=== PATIENT | male | born 1960 | race Caucasian/White ===

== ENCOUNTER 2024-03-31 11:51 | Emergency (ER) | payer MEDICARE, SELFPAY ==
[2024-03-31 12:14] VITALS: BP 127/61; PULSE 79; RESP 16; TEMP 36.7; O2SAT 99
--- NOTE | 2024-03-31 12:18 | ED.URI ---
HPI - URI/Sore Throat General Chief Complaint: Upper Respiratory Infection Stated Complaint: throat burning, no energy Time Seen by Provider: 03/31/24 12:28 Source: patient and RN notes reviewed Mode of arrival: ambulatory Limitations: no limitations History of Present Illness HPI Narrative: 64 year old male presents with concern for 3-4 day history of his throat burning, fatigue, body aches, sweats. He denies nasal congestion, rhinorrhea, cough, nausea, vomiting, diarrhea. He reports cloudy urine but denies any other urine symptoms. He did not take his tamsulosin for a week. He has not taken anything [id number] for his symptoms. MD elicited complaint: sore throat Related Data Home Medications Medication Instructions Recorded Confirmed aspirin 81 mg tablet 81 mg PO DAILY 03/31/24 03/31/24 tamsulosin 0.4 mg capsule 0.4 mg PO DAILY 03/31/24 03/31/24 Allergies Allergy/AdvReac Type Severity Reaction Status Date / Time diphenhydramine AdvReac Intermediate Itching Verified 03/31/24 12:31 [From Marta] Review of Systems Review of Systems: CONSTITUTIONAL: Reports malaise, fatigue chills, sweats. Denies fever. EYES: Denies visual changes, redness, or discharge. ENT: Denies rhinorrhea, congestion, sinus pain, otalgia. Reports sore throat. CARDIOVASCULAR: Denies chest pain, palpitations, or edema. RESPIRATORY: Denies cough. Denies dyspnea. GASTROINTESTINAL: Denies abdominal pain, nausea, vomiting, diarrhea : Denies dysuria, frequency, urgency SKIN: Denies rash or itching. MUSCULOSKELETAL: Reports myalgia. NEUROLOGIC: Denies headache. All systems reviewed & are unremarkable except as noted in HPI and below PMFSH Comments At time of signature, agree with nursing past medical, surgical, social and family history. There is no relevant family history pertinent to the presenting complaint Exam Narrative: GENERAL: Well-appearing, well-nourished, and in no acute distress. HEAD: Normocephalic EYES: PERRLA, conjunctivae clear ENT: Nares clear, turbinates edematous and erythematous, clear discharge. Mucous membranes moist. TM pearly saeed with dull light reflex bilaterally; no tragal tenderness. Oropharynx not erythematous without lesions. Tonsils not enlarged and without exudate, no drooling, no hoarseness, no trismus, uvula midline. NECK: Supple. No lymphadenopathy CHEST: Clear to auscultation, breath sounds equal. No wheezing, rhonchi, rales, or stridor. No respiratory distress, speaks in full sentences. HEART: Regular rate and rhythm. No murmur heard. SKIN: Warm, dry, no rash. NEURO: Alert and oriented x3. PSYCH: Normal mood and affect Course Course Emergency Course: Patient is aware of diagnosis, understands and agrees to treatment plan. Anticipatory guidance given. Patient agrees to follow-up as directed and is aware of reasons to seek care at the emergency department. Portions of this record may have been created with voice recognition software Level of Care: Express Care Visit Vital Signs Vital signs: Vital Signs Temperature 98.1 F 03/31/24 12:14 Pulse Rate 79 03/31/24 12:14 Respiratory Rate 16 03/31/24 12:14 Blood Pressure 127/61 03/31/24 12:14 Pulse Oximetry 99 03/31/24 12:14 Oxygen Delivery Room Air 03/31/24 12:14 Temperature 98.1 F 03/31/24 12:14 Pulse Rate 79 03/31/24 12:14 Respiratory Rate 16 03/31/24 12:14 Blood Pressure 127/61 03/31/24 12:14 Pulse Oximetry 99 03/31/24 12:14 Oxygen Delivery Room Air 03/31/24 12:14 Reviewed. MDM - URI/Sore Throat MDM Narrative Medical decision making narrative: Differential diagnosis considered: Desai virus, strep pharyngitis, allergic rhinitis, upper respiratory tract infection, sinusitis, rhinosinusitis, nasopharyngitis. viral pharyngitis, otitis media, otitis externa, pneumonia, bronchitis, viral cough syndrome, viral syndrome, and influenza. Exam findings show no acute concerns or changes; p
== END 2024-03-31 12:45 | disposition home or self-care (01) ==
PROVIDERS: Emergency Provider Nurse Practitioner
DX: B34.9 Viral infection, unspecified (principal); Z20.822 Contact with and (suspected) exposure to COVID-19; K21.9 Gastro-esophageal reflux disease without esophagitis; N40.0 Benign prostatic hyperplasia without lower urinary tract symptoms; Z86.73 Personal history of transient ischemic attack (TIA), and cerebral infarction without residual deficits; Z85.72 Personal history of non-Hodgkin lymphomas
CPT/HCPCS: 81003; 87081; 87426; 87880; 99203; G0463

== ENCOUNTER 2024-04-08 12:25 | Emergency (ER) | payer MEDICARE, SELFPAY ==
--- NOTE | 2024-04-08 13:14 | ED.URI ---
HPI - URI/Sore Throat General Chief Complaint: Upper Respiratory Infection Stated Complaint: Sore Throat Time Seen by Provider: 04/08/24 13:00 Source: patient and RN notes reviewed Mode of arrival: ambulatory Limitations: no limitations History of Present Illness HPI Narrative: Patient presents today with a 2 week history of sore throat, cough that is worse at night, postnasal drainage. Denies shortness of breath or fever. He has tried Tylenol and Mucinex without much relief. Sore throat increases with swallowing. Related Data Home Medications Medication Instructions Recorded Confirmed aspirin 81 mg tablet 81 mg PO DAILY 03/31/24 03/31/24 tamsulosin 0.4 mg capsule 0.4 mg PO DAILY 03/31/24 03/31/24 omeprazole 20 mg capsule,delayed mg 04/08/24 release tadalafil 5 mg tablet mg 04/08/24 Allergies Allergy/AdvReac Type Severity Reaction Status Date / Time diphenhydramine AdvReac Intermediate Itching Verified 04/08/24 12:47 [From Marta] Review of Systems Review of Systems: CONSTITUTIONAL: Denies body aches, fever, chills, or sweats. EYES: Denies visual changes, redness, or discharge. ENT: Denies rhinorrhea, congestion, or otalgia.+ sore throat, postnasal drip CARDIOVASCULAR: Denies chest pain, palpitations, or edema. RESPIRATORY: Denies dyspnea.+ cough GASTROINTESTINAL: Denies abdominal pain, nausea, vomiting, or diarrhea. GENITOURINARY: Denies dysuria or hematuria. SKIN: Denies rash, itching, or wounds. MUSCULOSKELETAL: Denies back pain, joint pain, or myalgia. NEUROLOGIC: Denies headache, numbness, tingling, or weakness. PSYCH: Denies depression or anxiety. PMFSH Comments At time of signature, I have reviewed and agree with nursing past medical, surgical, social and family history unless otherwise noted. Please see nursing chart for further information. There is no relevant family history pertinent to the presenting complaint Exam Narrative: GENERAL: Well-appearing, well-nourished, and in no acute distress. HEAD: Normocephalic, atraumatic. EYES: EOMI. No redness or drainage. Conjunctivae normal. ENT: Mucous membranes pink and moist. Nares clear. No rhinorrhea. TMs normal bilaterally. Throat mildly erythematous without edema or exudate. Uvula midline. NECK: Normal AROM. Supple. No lymphadenopathy. CHEST: No respiratory distress. Clear to auscultation. Harsh cough noted. HEART: Regular rate and rhythm. No murmur appreciated. EXTREMITIES: Normal range of motion. No edema. SKIN: Warm, dry, no rash. Capillary refill normal. Normal skin turgor. NEURO: No focal deficits. Alert and oriented x3. Gait steady. PSYCH: Normal affect. No signs of depression or anxiety. Course Course Level of Care: Express Care Visit Vital Signs Vital signs: Vital Signs Temperature 99.0 F 04/08/24 13:18 Pulse Rate 75 04/08/24 13:18 Respiratory Rate 16 04/08/24 13:18 Blood Pressure 130/84 04/08/24 13:18 Pulse Oximetry 97 04/08/24 13:18 Oxygen Delivery Room Air 04/08/24 13:18 Temperature 99.0 F 04/08/24 13:18 Pulse Rate 75 04/08/24 13:18 Respiratory Rate 16 04/08/24 13:18 Blood Pressure 130/84 04/08/24 13:18 Pulse Oximetry 97 04/08/24 13:18 Oxygen Delivery Room Air 04/08/24 13:18 Reviewed MDM - URI/Sore Throat MDM Narrative Medical decision making narrative: Patient will be treated with doxycycline, prednisone, and benzonatate for sinusitis and bronchitis. Anticipatory guidance given. Differential Diagnosis Differential diagnosis: Likely upper respiratory infection, sinusitis, viral infection, bronchitis and other (Pneumonia) Critical Care Time Critical Care Time Critical Care Time: No Discharge Plan Discharge Clinical Impression: Bronchitis Sinusitis Qualifiers: Sinusitis location: unspecified location Chronicity: acute Recurrence: non-recurrent Qualified Code(s): J01.90 - Acute sinusitis, unspecified Patient Disposition: Home, Self-C
[2024-04-08 13:18] VITALS: BP 130/84; PULSE 75; RESP 16; TEMP 37.2; O2SAT 97
== END 2024-04-08 13:23 | disposition home or self-care (01) ==
PROVIDERS: Emergency Provider Nurse Practitioner
DX: J40 Bronchitis, not specified as acute or chronic (principal); J01.90 Acute sinusitis, unspecified
CPT/HCPCS: 99213; G0463

== ENCOUNTER 2024-07-31 09:46 | Emergency (ER) | payer MEDICARE, SELFPAY ==
--- NOTE | ~2024-07-31 | XR_ITS ---
EXAMINATION: XR chest 2V DATE: 07/31/2024 10:41 INDICATION: Cough and congestion TECHNIQUE: frontal and lateral views of the chest were obtained. COMPARISON: None FINDINGS: There are few small scattered calcified pulmonary nodules consistent with old granulomatous disease. No pneumonia, pulmonary edema, pleural effusion or pneumothorax. The cardiomediastinal silhouette is normal. Mild thoracic spondylosis. IMPRESSION: 1. No acute cardiopulmonary disease. Reviewed, dictated and finalized at location A.
[2024-07-31 09:56] VITALS: BP 129/72; PULSE 69; RESP 18; TEMP 36.8; O2SAT 98
[2024-07-31 09:57] VITALS: BP 129/72; PULSE 69; RESP 18; TEMP 36.8; O2SAT 98
--- NOTE | 2024-07-31 10:13 | ED.URI ---
HPI - URI/Sore Throat General Chief Complaint: Upper Respiratory Infection Stated Complaint: Sinus Time Seen by Provider: 07/31/24 10:15 Source: patient, RN notes reviewed and old records reviewed Mode of arrival: ambulatory Limitations: no limitations History of Present Illness HPI Narrative: Patient presents with complaints of nasal congestion, postnasal drip, sore throat, cough, headache. He reports that headache has gotten better over the past day or so. States that it was quite bad at onset. Has been taking Motrin with moderate relief. He denies any fever. Does report some chills. Hoarse voice noted, no distress at this time. Related Data Home Medications Medication Instructions Recorded Confirmed aspirin 81 mg tablet 81 mg PO DAILY 03/31/24 07/31/24 tamsulosin 0.4 mg capsule 0.4 mg PO DAILY 03/31/24 07/31/24 omeprazole 20 mg capsule,delayed 20 mg PO DAILY 04/08/24 07/31/24 release tadalafil 5 mg tablet 5 mg PO DAILY 04/08/24 07/31/24 Allergies Allergy/AdvReac Type Severity Reaction Status Date / Time diphenhydramine AdvReac Intermediate Itching Verified 07/31/24 09:55 [From Marta] Review of Systems Review of Systems: All systems reviewed & are unremarkable except as noted in HPI and below Constitutional: Constitutional: Reports as per HPI and Reports no additional constitutional complaints ENT: Reports system reviewed and no additional complaints, except as documented and Reports as per HPI Cardiovascular: Cardiovascular: Reports as per HPI and Reports no additional cardiovascular complaints Respiratory: Respiratory: Reports as per HPI and Reports no additional respiratory complaints Gastrointestinal: Gastrointestinal: Reports heartburn PMFSH Comments At the time of my signature, I reviewed and agree with the nursing past medical, surgical, social, and family history. There is no relevant family history pertinent to the patient complaint. Exam Const: General: cooperative, no acute distress, alert and awake Orientation/consciousness: oriented to person, oriented to place and oriented to time HENMT: Head: normal to inspection Ears: TM's normal bilaterally Mouth: Yes moist mucous membranes Throat: posterior oropharynx abnormal erythema and postnasal drainage Other: Hoarse voice Resp: Effort & Inspection: normal respiratory effort and able to speak in complete sentences Auscultation: clear to auscultation bilaterally, no crackles, no rales, no rhonchi and no wheezes Cardio: Palpation: normal PMI Rate: regular rate Rhythm: regular rhythm Heart sounds: S1 normal heart sound present and S2 normal heart sound present Neuro: General: oriented to person, oriented to place and oriented to time Cranial nerves: Yes CN's II-XII intact bilaterally Psych: Appearance: grossly normal Thought process: Normal thought process present Insight: Good insight present (Psych) Judgement: Good judgement present (Psych) Course Course Level of Care: Express Care Visit Vital Signs Vital signs: Vital Signs Temperature 98.3 F 07/31/24 09:56 Pulse Rate 69 07/31/24 09:56 Respiratory Rate 18 07/31/24 09:56 Blood Pressure 129/72 07/31/24 09:56 Pulse Oximetry 98 07/31/24 09:56 Oxygen Delivery Room Air 07/31/24 09:56 Temperature 98.3 F 07/31/24 09:57 Pulse Rate 69 07/31/24 09:57 Respiratory Rate 18 07/31/24 09:57 Blood Pressure 129/72 07/31/24 09:57 Pulse Oximetry 98 07/31/24 09:57 Oxygen Delivery Room Air 07/31/24 09:57 Reviewed MDM - URI/Sore Throat MDM Narrative Medical decision making narrative: Patient with improving symptoms. Negative COVID, negative flu. Clear chest x-ray. Symptoms likely viral in origin. Symptomatic treatment. Follow up primary care provider. Emergency department for new or worse symptoms Discharge instructions reviewed with patient, as well as provided in writing per nursing staff. The instructions also include spec
[2024-07-31 10:31] LABS: EDCOVIDSCREEN Negative (Negative); EDINFLUASCREEN Negative (Negative); EDINFLUBSCREEN Negative (Negative)
[2024-07-31 11:24] LABS: EDSTREPNEGPOS1 Negative (Negative)
== END 2024-07-31 11:20 | disposition home or self-care (01) ==
PROVIDERS: Emergency Provider Nurse Practitioner Family
DX: J06.9 Acute upper respiratory infection, unspecified (principal); Z20.822 Contact with and (suspected) exposure to COVID-19; Z79.82 Long term (current) use of aspirin; N40.0 Benign prostatic hyperplasia without lower urinary tract symptoms; Z86.73 Personal history of transient ischemic attack (TIA), and cerebral infarction without residual deficits; Z85.72 Personal history of non-Hodgkin lymphomas; Z92.21 Personal history of antineoplastic chemotherapy
CPT/HCPCS: 71046; 87081; 87426; 87804; 87880; 99213; G0463

== ENCOUNTER 2024-11-27 13:06 | Emergency (ER) | payer MEDICARE, SELFPAY ==
--- NOTE | 2024-11-27 13:10 | ED_ITS ---
HPI - URI/Sore Throat General Chief Complaint: Upper Respiratory Infection Stated Complaint: cough,congestion Time Seen by Provider: 11/27/24 13:32 Source: patient and RN notes reviewed Mode of arrival: ambulatory Limitations: no limitations History of Present Illness HPI Narrative: 64-year-old presents with concern for 1 month history cough sinus congestion, chest congestion headache. Reports a throat. Reports mildly but worse. He has not been taking medications. He denies shortness breath. MD elicited complaint: cough and nasal congestion Related Data Home Medications ?Medication ?Instructions ?Recorded ?Confirmed ?Last Taken ?Type aspirin 81 mg tablet 81 mg PO DAILY 03/31/24 11/10/24 Unknown History tamsulosin 0.4 mg capsule 0.4 mg PO DAILY 03/31/24 11/10/24 Unknown History omeprazole 20 mg capsule,delayed 20 mg PO DAILY 04/08/24 11/10/24 Unknown History release tadalafil 5 mg tablet 5 mg PO DAILY 04/08/24 11/10/24 Unknown History Allergies Allergy/AdvReac Type Severity Reaction Status Date / Time diphenhydramine (From AdvReac Intermediate Itching Verified 11/27/24 13:14 Benadryl) Review of Systems Review of Systems: CONSTITUTIONAL: Reports malaise. Denies chills, sweats, or fever. EYES: Denies visual changes, redness, or discharge. ENT: Reports rhinorrhea, congestion, sinus pain, and sore throat. CARDIOVASCULAR: Denies chest pain, palpitations, or edema. RESPIRATORY: Reports cough, chest congestion. Denies dyspnea. GASTROINTESTINAL: Denies abdominal pain, nausea, vomiting, diarrhea SKIN: Denies rash or itching. MUSCULOSKELETAL: Denies myalgia. NEUROLOGIC: Reports headache. All systems reviewed & are unremarkable except as noted in HPI and below PMFSH Comments At time of signature, agree with nursing past medical, surgical, social and family history. There is no relevant family history pertinent to the presenting complaint Exam Narrative: GENERAL: Nontoxic-appearing, well-nourished, and in no acute distress. HEAD: Normocephalic EYES: PERRLA, conjunctivae clear ENT: Nares clear. Mucous membranes moist. TM pearly saeed with dull light reflex bilaterally; no tragal tenderness. Oropharynx not erythematous without lesions. Tonsils not enlarged and without exudate, no drooling, no hoarseness, no trismus, uvula midline. NECK: Supple. No lymphadenopathy CHEST: Clear to auscultation, breath sounds equal. No wheezing, rhonchi, rales, or stridor. No respiratory distress, speaks in full sentences. Tight cough noted HEART: Regular rate and rhythm. No murmur heard. SKIN: Warm, dry, no rash. NEURO: Alert and oriented x3. PSYCH: Normal mood and affect Course Course Emergency Course: Patient is aware of diagnosis, understands and agrees to treatment plan. Anti cipatory guidance given. Patient agrees to follow-up as directed and is aware of reasons to seek care at the emergency department. Portions of this record may have been created with voice recognition software Level of Care: Express Care Visit Vital Signs Vital signs: Reviewed. MDM - URI/Sore Throat MDM Narrative Medical decision making narrative: Differential diagnosis considered: Desai virus, strep pharyngitis, allergic rhinitis, upper respiratory tract infection, sinusitis, rhinosinusitis, nasopharyngitis. viral pharyngitis, otitis media, otitis externa, pneumonia, bronchitis, viral cough syndrome, viral syndrome, and influenza. Exam findings show no acute concerns or changes; patient is non-toxic appearing and is in no distress. Patient is appropriate for outpatient treatment and follow-up. Lab Data Attestation: I reviewed the patient's lab results. Critical Care Time Critical Care Time Critical Care Time: No Discharge Plan Discharge Clinical Impression: Sinobronchitis Patient Disposition: Home, Self-Care Condition: Stable Instructions: Antibiotic Form, Sinusitis (ED), Acute Bronchitis (ED) Additional Instructions: 1) Please follow-up with your primary care doctor in the next 1-2 days. 2) If you have any worsening of symptoms or any other urgent concerns please go to the ER. 3) Please take medications as prescribed and continue taking your home medications as usual. 4) Please read and follow information included in discharge instructions. Patient Language: Slovenian Prescriptions: New prednisone 20 mg tablet 40 mg PO DAILY 5 Days Qty: 10 0RF doxycycline monohydrate 100 mg tablet 100 mg PO BID 7 Days Qty: 14 0RF No Action omeprazole 20 mg capsule,delayed release(DR/EC) 20 mg PO DAILY tadalafil 5 mg tablet 5 mg PO DAILY ofloxacin 0.3 % drops See Rx Instructions .ROUTE .COMPLEX 7 Days Qty: 10 0RF Rx Instructions: put 1-2 drps into affected eye(s) every 2-4 h x 2 days, then 1-2 drps 4 times/day days 3-7 tamsulosin 0.4 mg capsule 0.4 mg PO DAILY Adult Low Dose Aspirin 81 mg Tablet 81 mg PO DAILY Follow-up/Referrals: UNKNOWN,DOCTOR [Primary Care Provider] - Time of Disposition: 13:42
[2024-11-27 13:16] VITALS: BP 118/77; PULSE 83; RESP 16; TEMP 36.3; O2SAT 98
[2024-11-27 13:40] LABS: EDSTREPNEGPOS1 Negative (Negative)
== END 2024-11-27 13:45 | disposition home or self-care (01) ==
PROVIDERS: Emergency Provider Nurse Practitioner
DX: J32.9 Chronic sinusitis, unspecified (principal); J40 Bronchitis, not specified as acute or chronic; N40.0 Benign prostatic hyperplasia without lower urinary tract symptoms; K21.9 Gastro-esophageal reflux disease without esophagitis; Z79.82 Long term (current) use of aspirin; Z86.73 Personal history of transient ischemic attack (TIA), and cerebral infarction without residual deficits; Z85.72 Personal history of non-Hodgkin lymphomas; Z92.21 Personal history of antineoplastic chemotherapy
CPT/HCPCS: 87880; 99213; G0463

== ENCOUNTER 2024-12-30 12:18 | Outpatient (CLI) | payer MEDICARE, SELFPAY ==
[2024-12-30 13:48] LABS: Basophils Percent Auto 0.3 % (0.2-1.2); Eosinophils Absolute Auto 0.1 K/mm3 (0-0.3); Eosinophils Percent Auto 1.7 % (0-4.4); Hematocrit 45.4 % (42.0-52.0); Immature Granulocyte Absolute 0.02 K/mm3 (0.00-0.031); Immature Granulocyte Percent A 0.3 % (0-0.5); Lymphocytes Absolute Auto 1.54 K/mm3 (0.9-3.2); Lymphocytes Percent Auto 23.5 % (18.3-44.2); Mean Corpuscular Hemoglobin 28.9 pg (26-34); Mean Corpuscular Volume 87.5 fl (80-100); Mean Platelet Volume 9.7 fl (7.4-10.4); Monocytes Absolute Auto 0.6 K/mm3 (0.1-0.6); Monocytes Percent Auto 8.7 % (2.6-8.5); Neutrophils Absolute Auto 4.3 K/mm3 (1.3-6.7); Neutrophils Percent Auto 65.5 % (45.5-73.1); Platelet Count Result 222 k/mm3 (150-375); Red Blood Count 5.19 M/mm3 (4.6-6.20); White Blood Count 6.6 K/mm3 (4.5-10.0)
[2024-12-30 14:00] LABS: Alanine Aminotransferase 25 U/L (6-50); Albumin Level 4.1 g/dL (3.5-5.1); Alkaline Phosphatase 55 U/L (38-126); Anion Gap 4 mmol/L (4-12); Aspartate Amino Transferase 30 U/L (17-59); Bilirubin,Total 0.7 mg/dL (0.2-1.3); Blood Urea Nitrogen 25 mg/dL (9-20); Calcium 9.1 mg/dL (8.4-10.2); Carbon Dioxide 33 mmol/L (22-30); Chloride 99 mmol/L (98-107); Estimated Glomerular Filt Rate > 60; Glucose 91 mg/dL (65-110); Lactate Dehydrogenase 170 U/L (120-246); Potassium 4.2 mmol/L (3.4-5.0); Sodium 136 mmol/L (137-145)
--- OUTSIDE RECORDS SUMMARY | 2024-12-30 14:44 | XMS_ITS | Clinical Summary ---
Author Organization [facility] Address [address] [place] [id number] Care Team Providers Care Senior Bi Architect Name Role Phone Unavailable Primary Care Provider Unavailabl e Social History Tobacco Use Types Packs/Day Years Used Date Smoking Tobacco: Never Assessed Sex and Gender Information Value Date Recorded Sex Assigned at Not on file Legal Sex Male 9:40 PM [employer] Gender Identity Not on file Sexual Orientation Not on file Plan of Treatment Health Maintenance Due Date Last Done Comments Colorectal Cancer Screening Colonoscopy (10 Years) 1960 Hepatitis C 02/16/1976 DTaP, Tdap and Td Vaccines ( 1 - Tdap) 1977 Zoster Vaccines (1 of 2) 02/16/2008 Pneumococcal Vaccine: 65+ Ye ars (1 of 1 - PCV) 2023 COVID-19 Vaccine ( - 2023-2 5 season) 2024 Influenza Adult (#1) 2024 RSV Immunization or 60+ Years (1 - 1-dose 75+ series) 2033 Meningococcal B Vaccine Aged Out No l onger eligible based on patient's age to complete this topic Meningococcal Vaccine Aged Out No john eran eligible based on patient's age to complete this topic RSV Immunizations Under 20 Months Aged Out No longer eligible based on patient's age to complete this topic
[2024-12-30 14:46] LABS: Iron 125 ug/dL (49-181)
[2024-12-30 14:58] LABS: Percent Iron Saturation 39 % (20-50)
[2024-12-30 15:04] LABS: Folic Acid 15.1 ng/mL (2.76->20)
== END 2024-12-30 12:19 | disposition home or self-care (01) ==
DX: C82.90 Follicular lymphoma, unspecified, unspecified site (principal)
CPT/HCPCS: 36415; 80053; 82607; 82728; 82746; 83540; 83550; 83615; 85025

== ENCOUNTER 2025-08-15 13:22 | Outpatient (CLI) | payer MEDICARE, SELFPAY ==
--- OUTSIDE RECORDS SUMMARY | 2025-08-15 13:29 | XMS_ITS | Clinical Summary ---
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[employer] Gender Identity Not on file Sexual Orientation Not on file Plan of Treatment Health Maintenance Due Date Last Done Comments Colorectal Cancer Screening Colonoscopy (10 Years) 1960 Hepatitis C 02/16/1976 DTaP, Tdap and Td Vaccines ( 1 - Tdap) 1977 Pneumococcal Vaccine: 50+ Ye ars (1 of 1 - PCV) 02/16/2008 Zoster Vaccines (1 of 2) 02/16/2008 COVID-19 Vaccine ( - 2024-2 6 season) 2025 Influenza Adult (#1) 2025 RSV Immunization or 60+ Years (1 - 1-dose 75+ series) 2033 Hepatitis A Vaccines Aged Out No long er eligible based on patient's age to complete this topic Meningococcal B Vaccine Aged Out No l onger eligible based on patient's age to complete this topic Meningococcal Vaccine Aged Out No john eran eligible based on patient's age to complete this topic RSV Immunizations Under 20 Months Aged Out No longer eligible based on patient's age to complete this topic
[2025-08-15 14:36] LABS: Hematocrit 46.1 % (42.0-52.0); Hemoglobin 15.4 g/dL (14.0-18.0); Immature Granulocyte Percent A 0.1 % (0-0.5); Lymphocytes Absolute Auto 1.94 K/mm3 (0.9-3.2); Mean Corpuscular HGB Conc 33.4 g/dl (32-36); Mean Corpuscular Hemoglobin 29.7 pg (26-34); Mean Corpuscular Volume 89.0 fl (80-100); Nucleated Red Blood Cells Absolute Auto 0.000 K/mm3 (0.0-0.012); Nucleated Red Blood Cells Perc 0.0 % (0.0-0.2); Platelet Count Result 205 k/mm3 (150-375); Red Blood Count 5.18 M/mm3 (4.6-6.20); White Blood Count 6.9 K/mm3 (4.5-10.0)
[2025-08-15 14:53] LABS: Alanine Aminotransferase 26 U/L (6-50); Albumin Level 4.1 g/dL (3.5-5.1); Alkaline Phosphatase 63 U/L (38-126); Anion Gap 6 mmol/L (4-12); Aspartate Amino Transferase 44 U/L (17-59); Bilirubin,Total 0.5 mg/dL (0.2-1.3); Blood Urea Nitrogen 30 mg/dL (9-20); Calcium 9.1 mg/dL (8.4-10.2); Carbon Dioxide 30 mmol/L (22-30); Chloride 100 mmol/L (98-107); Estimated Glomerular Filt Rate > 60; Glucose 106 mg/dL (65-110); Potassium 3.9 mmol/L (3.4-5.0); Sodium 136 mmol/L (137-145); Total Protein 6.7 g/dL (6.3-8.2)
[2025-08-15 14:56] LABS: Iron 116 ug/dL (49-181)
[2025-08-15 15:05] LABS: Percent Iron Saturation 40 % (20-50)
== END 2025-08-15 13:23 | disposition home or self-care (01) ==
DX: C82.90 Follicular lymphoma, unspecified, unspecified site (principal)
CPT/HCPCS: 36415; 80053; 83540; 83550; 83615; 85025